=== PATIENT | female | born 1950 | race Caucasian/White ===

== ENCOUNTER 2020-04-03 14:48 | Outpatient (CLI) | payer MEDICARE, SELFPAY ==
--- NOTE | ~2020-04-03 | MM_ITS ---
EXAMINATION: MM screening [facility] BI w rose marie HISTORY: Screening mammogram TECHNIQUE: Craniocaudal and mediolateral oblique 3-D tomosynthesis images were obtained and synthetic 2-D images were generated. CAD analysis was submitted and interpreted. COMPARISON: Comparison to multiple prior studies sequentially, with oldest reviewed study dated 03/09. BREAST PARENCHYMAL COMPOSITION: There are scattered areas of fibroglandular density. FINDINGS: There is no evidence of suspicious mass, calcification, or architectural distortion to sugg est malignancy in either breast. There has been no suspicious interval change. IMPRESSION: 1. No mammographic evidence of malignancy. 2. Recommend routine screening mammography in one year. BI-RADS Category 1: Negative Reviewed, dictated and finalized at location A.
== END 2020-04-03 14:49 | disposition home or self-care (01) ==
PROVIDERS: PCP Family Medicine; Visit Provider Family Medicine
DX: Z12.31 Encounter for screening mammogram for malignant neoplasm of breast (principal)
CPT/HCPCS: 77063; 77067

== ENCOUNTER 2020-09-13 06:50 | Outpatient (NON) | payer MEDICARE, SELFPAY ==
[2020-09-13 23:48] LABS: SARS-CoV-2 RNA PCR Positive
== END 2020-09-13 06:51 ==
LOC: ANHCOVIDDT 07:06
PROVIDERS: PCP Family Medicine; Visit Provider Family Medicine
DX: U07.1 COVID-19 (principal)
CPT/HCPCS: 87635; C9803; U0003

== ENCOUNTER 2021-02-01 15:11 | Outpatient (CLI) | payer MEDICARE, SELFPAY ==
--- NOTE | ~2021-02-01 | DEXA_ITS ---
Bone Density Report Name: Pretty Nayak Age: 70 Sex: Female Ethnicity: White Date of : 1950 Indication: postmenopausal; Referring Provider: ALMA ARMIJO Study: Bone densitometry was performed. Exam Date: February 01, 2021 Accession number: [id number] Bone Density: Region BMD T-score Z-score Classification AP Spine (L1-L4) 0.850 -1.8 0.2 Osteopenia Femoral Neck (Left) 0.629 -2.0 -0.3 Osteopenia Total Hip (Left) 0.675 -2.2 -0.8 Osteopenia Total Hip Bilateral Avg 0.650 -2.4 -1.0 Osteopenia Femoral Neck (Right) 0.580 -2.4 -0.7 Osteopenia Total Hip (Right) 0.623 -2.6 -1.2 Osteoporosis World Health Organization criteria for BMD impression classify patients as: Normal (T-score at or above -1.0), Osteopenia (T-score between -1.0 and -2.5), or Osteoporosis (T-score at or below -2.5). 10-year Fracture Risk: FRAX not reported because: Some T-score for Spine Total or Hip Total or Femoral Neck at or below -2.5 Clinical Information Provided by Patient: Patient maximum height was 65.5 Menopause Age: 57 Onset of menses at age 16 Number of children 2 Impression: The patient has osteoporosis, based on the Right Total Hip T-score. Discussion: INCREASED RISK OF FRACTURE. BONE DENSITY IS UNDESIRABLY LOW AT ONE OR MORE SKELETAL SITES, CONSISTENT WITH POSTMENOPAUSAL OSTEOPOROSIS. This patient's lowest T-score meets the World Health Organization's (WHO) criteria for osteoporosis at one or more sites (T-score -2.5 or below). In untreated patients, the risk of osteoporotic fracture increases approximately two-fold for each 1.0 SD decrease in T-score. Low bone density is not the only risk factor for fracture; also consider factors such as patient's age, frailty or poor health, risk of falling, risk of injury, previous osteoporotic fracture, family history of osteoporosis, cigarette smoking, low body weight, etc. Not everyone with low bone mineral density has osteoporosis; osteomalacia and other metabolic bone disorders should also be considered. Patients who have osteoporosis should be evaluated for specific diseases and conditions (secondary causes) that may cause or contribute to bone loss. The [place] Association [employer] Clinical Endocrinologists (AACE) and National Osteoporosis Foundation (NOF) recommend pharmacologic intervention for all postmenopausal women whose T-score is in this range. The patient should follow a healthful lifestyle (good nutrition with adequate calcium and vitamin D, and appropriate weight-bearing exercise). Follow-Up: Consider a repeat BMD and Vertebral Fracture Assessment (VFA) exam in 2 years or sooner if medically necessary, to reassess this patient's status. Reported by: JEFF on 02/01/2021 3:33:00 PM. Reviewed, dictated and finalized at location
== END 2021-02-01 15:12 | disposition home or self-care (01) ==
LOC: ANHIMG 15:13
PROVIDERS: PCP Family Medicine; Visit Provider Family Medicine
DX: M81.0 Age-related osteoporosis without current pathological fracture (principal); Z12.31 Encounter for screening mammogram for malignant neoplasm of breast; Z78.0 Asymptomatic menopausal state; M85.88 Other specified disorders of bone density and structure, other site; M85.852 Other specified disorders of bone density and structure, left thigh; M85.851 Other specified disorders of bone density and structure, right thigh
CPT/HCPCS: 77080

== ENCOUNTER 2021-04-06 14:06 | Outpatient (CLI) | payer MEDICARE, SELFPAY ==
--- NOTE | ~2021-04-06 | MM_ITS ---
EXAMINATION: MM screening [facility] BI w rose marie HISTORY: Screening mammogram TECHNIQUE: Craniocaudal and mediolateral oblique 3-D tomosynthesis images were obtained and synthetic 2-D images were generated. CAD analysis was submitted and interpreted. COMPARISON: 04/03/2020 through 03/03/2015 bilateral digital screening mammogram examinations and 04/02/2019 diagnostic left mammogram BREAST PARENCHYMAL COMPOSITION: There are scattered areas of fibroglandular density. FINDINGS: Stable focal fibroglandular asymmetry in the medial left breast, not significantly changed since 03/03/2015. Occasional bilateral benign calcifications. There is no evidence of suspicious mass, calcification, or architectural distortion to suggest malignancy in either breast. There has been no suspicious interval change. IMPRESSION: 1. No mammographic evidence of malignancy. 2. Recommend routine screening mammography in one year. BI-RADS Category 2: Benign finding(s). Reviewed, dictated and finalized at location A.
== END 2021-04-06 14:07 | disposition home or self-care (01) ==
LOC: ANHIMG 14:12
PROVIDERS: PCP Family Medicine; Visit Provider Family Medicine
DX: Z12.31 Encounter for screening mammogram for malignant neoplasm of breast (principal)
CPT/HCPCS: 77063; 77067

== ENCOUNTER 2021-05-17 00:36 | Day surgery (SDC) | payer MEDICARE, SELFPAY ==
[2021-05-03 10:43] VITALS: BMI 22.9
[2021-05-17 07:16] VITALS: BP 119/80; PULSE 120; RESP 18; TEMP 36.3; O2SAT 97
[2021-05-17] MEDS: LACTATED RINGERS 1,000 ML 150 ML IV CONT (07:26)
--- NOTE | 2021-05-17 07:50 | PM.HPGS ---
History of Present Illness History of Present Illness Consent: Risks, benefits, and alternatives have been discussed and questions answered. Patient agrees to proceed with procedure. Chief complaint: hx of colon polyps Narrative: Pretty Nayak is a 70 year old female Here for colon cancer screening. She has a history of polyps. Review of Systems Review of Systems: All systems reviewed & are unremarkable except as noted in HPI and below PMFSH Past Medical History Medical History Cataract Colorectal polyps (~2013) COVID-19 Skin cancer (melanoma) (~2011) Suicide attempt 2009 Surgical History Surgical History History of cholecystectomy (~2008) History of tonsillectomy (~1959) Status post Mohs surgery (~2011) Family History Family History Mother Family history of thyroid disease Father Carcinoma of colon Family history of macular degeneration Other Family history of malignant melanoma Social History Social History Smoking status: Never smoker Alcohol intake: current Alcohol use details: very occasionally Living arrangements: with family Gender identity (if verbalized by the patient): Female Spiritual care concerns: No Meds Home Medications and Allergies Home Medications Medication Instructions Recorded Confirmed Type fluticasone propionate 50 1 spray INTRANASAL DAILY PRN 11/28/20 05/17/21 History mcg/actuation nasal spray,suspension lorazepam 1 mg tablet 1 mg PO DAILY PRN 11/28/20 05/17/21 History cholecalciferol (vitamin D3) 25 25 mcg PO DAILY 01/03/21 05/17/21 History mcg (1,000 unit) capsule amitriptyline 10 mg tablet 20 mg PO QHS tablet 02/14/21 05/03/21 History acyclovir 200 mg PO .5x a day PRN 05/17/21 05/17/21 History denosumab [Prolia] 60 mg SUBCUT [id number] 05/17/21 05/17/21 History Allergies Allergy/AdvReac Type Severity Reaction Status Date / Time erythromycin base Allergy Unknown unknown Verified 05/17/21 07:15 sulfamethoxazole AdvReac Severe NAUSEA Verified 05/17/21 07:15 trimethoprim AdvReac Severe NAUSEA Verified 05/17/21 07:15 Bisphosphonates AdvReac unable to Verified 05/17/21 07:15 tolerate raloxifene [From Evista] AdvReac not able Verified 05/17/21 07:15 to tolerate Vital Signs Vital Signs - 24 hr 05/17/21 07:16 Temperature 36.3 C L Pulse Rate 120 H Respiratory Rate 18 Blood Pressure 119/80 Pulse Oximetry 97 Exam Const: General: alert Orientation/consciousness: patient oriented x3 Resp: Auscultation: clear to auscultation bilaterally Cardio: Rhythm: regular rhythm GI: GI Palp: Yes Soft to palpation and No Tenderness to palpation present (GI) Neuro: General: patient oriented x3 Assessment and Plan Assessment and plan (1) Colon cancer screening: Code(s): Z12.11 - Encounter for screening for malignant neoplasm of colon Status: Acute Assessment and Plan: Colonoscopy with possible biopsy or polypectomy or cautery or injection of substances.
--- NOTE | 2021-05-17 08:01 | WPDANESEPPF ---
Anes - Initial Pre Proc Eval Procedure: Operation Date: 05/17/21 08:30 Proposed Procedures p Screening Colonoscopy - eKshav Anderson MD Date/Time: 05/17/21 08:01 Surgeon: Keshav Anderson MD Pre Op Diagnosis: hx of colon polyps Patient Data Age: 70 Gender: F Height: 1.57 m Weight: 55 kg Last Vital Signs Temp 36.3 C L 05/17/21 07:16 Pulse 120 H 05/17/21 07:16 Resp 18 05/17/21 07:16 BP 119/80 05/17/21 07:16 Pulse Ox 97 05/17/21 07:16 Allergies Allergy/AdvReac Type Severity Reaction Status Date / Time erythromycin base Allergy Unknown unknown Verified 05/17/21 07:15 sulfamethoxazole AdvReac Severe NAUSEA Verified 05/17/21 07:15 trimethoprim AdvReac Severe NAUSEA Verified 05/17/21 07:15 Bisphosphonates AdvReac unable to Verified 05/17/21 07:15 tolerate raloxifene [From Evista] AdvReac not able Verified 05/17/21 07:15 to tolerate Home Medications Medication Instructions Recorded Confirmed Type fluticasone propionate 50 1 spray INTRANASAL DAILY PRN 11/28/20 05/17/21 History mcg/actuation nasal spray,suspension lorazepam 1 mg tablet 1 mg PO DAILY PRN 11/28/20 05/17/21 History cholecalciferol (vitamin D3) 25 25 mcg PO DAILY 01/03/21 05/17/21 History mcg (1,000 unit) capsule amitriptyline 10 mg tablet 20 mg PO QHS tablet 02/14/21 05/03/21 History acyclovir 200 mg PO .5x a day PRN 05/17/21 05/17/21 History denosumab [Prolia] 60 mg SUBCUT [id number] 05/17/21 05/17/21 History Patient hx anesthesia problems: none Family hx anesthesia problems: none PMFSH Past Medical History Medical History Cataract Colorectal polyps (~2013) COVID-19 Skin cancer (melanoma) (~2011) Suicide attempt 2009 Surgical History Surgical History History of cholecystectomy (~2008) History of tonsillectomy (~1959) Status post Mohs surgery (~2011) Family History Family History Mother Family history of thyroid disease Father Carcinoma of colon Family history of macular degeneration Other Family history of malignant melanoma Social History Social History Smoking status: Never smoker Alcohol intake: current Alcohol use details: very occasionally Living arrangements: with family Gender identity (if verbalized by the patient): Female Spiritual care concerns: No Anes - Eval Final PreProcedure Day of Procedure 05/17/21 08:01 Patient weight: normal Heart: regular rate and rhythm Lungs: clear to auscultation and normal air movement Airway: Mallampati scale class II Neurological: alert and oriented Last oral intake: >/= 8 hours ASA classification: II Emergent: no Anesthetic plan: proceed Anesthesia type and monitoring: general GIVS and standard monitoring Informed Consent: The patient's anesthetic plan and its attendant risks and benefits were discussed with the patient/family/POA. Questions were solicited and answers provided to the satisfaction of the patient/family/POA.
[2021-05-17 08:56] VITALS: BP 90/59; PULSE 43; RESP 19; O2SAT 99
[2021-05-17 09:06] VITALS: BP 113/71; PULSE 98; RESP 20; O2SAT 98
[2021-05-17 09:16] VITALS: BP 117/75; PULSE 88; RESP 19; O2SAT 100
== END 2021-05-17 09:34 | disposition home or self-care (01) ==
PROVIDERS: PCP Family Medicine; Visit Provider Internal Medicine Gastroenterology
PROC: 0DJD8ZZ Inspection of Lower Intestinal Tract, Via Natural or Artificial Opening Endoscopic (ICD-10-PCS; CPT 45378; principal; 2021-05-17 08:30)
DX: Z12.11 Encounter for screening for malignant neoplasm of colon (principal); Z86.010 Personal history of colon polyps; Z86.16 Personal history of COVID-19
CPT/HCPCS: G0105; J2001; J2704; J7120

== ENCOUNTER 2021-10-16 14:04 | Emergency (ER) | payer MEDICARE, SELFPAY ==
--- NOTE | ~2021-10-16 | XR_ITS ---
XR humerus RT 10/16/2021 14:38 Indication: Right arm pain Procedure: 2 views right humerus Comparison: No prior studies for comparison. Findings: There is ossification adjacent to the humeral head laterally, possibly calcific tendinopath y. No acute fracture or traumatic malalignment. Normal mineralization. Surrounding soft tissues are u nremarkable. No foreign bodies. Impression: 1: No acute bone or joint abnormality. 2: Probable calcific tendinopathy of the shoulder. Reviewed, dictated and finalized at location A. [employer] Impression: 1: No acute bone or joint abnormality. 2: Probable calcific tendinopathy of the shoulder.
[2021-10-16 14:13] VITALS: BP 136/80; PULSE 119; RESP 16; TEMP 37.3; O2SAT 100
[2021-10-16 14:17] VITALS: BP 136/80; PULSE 119; RESP 16; TEMP 37.3; O2SAT 100
--- NOTE | 2021-10-16 15:03 | ED.GENADULT ---
HPI - General Adult General Chief complaint: Extremity Injury, Upper Stated complaint: rt shoulder pain Source: patient Mode of arrival: ambulatory Limitations: no limitations History of Present Illness HPI narrative: Patient is a 70-year-old female who presents to the [facility] via POV for evaluation of right shoulder pain that occurred 5 days ago. Additionally, she reports picking up a heavy [employer] container eliciting pain. Ibuprofen provides minimal relief although she states as she has aged she has a difficult time tolerating this medication. She reports stomach upset with NSAIDs. Movement worsens pain. Remaining still resolved pain. She called her PCP although they were unable to schedule appointment since they are out of the office due to the holidays. Related Data Home Medications Medication Instructions Recorded Confirmed fluticasone propionate 50 1 spray INTRANASAL DAILY PRN 11/28/20 10/16/21 mcg/actuation nasal spray,suspension lorazepam 1 mg tablet 0.5 mg PO DAILY PRN 11/28/20 10/16/21 cholecalciferol (vitamin D3) 25 25 mcg PO DAILY 01/03/21 10/16/21 mcg (1,000 unit) capsule amitriptyline 10 mg tablet 20 mg PO QHS tablet 02/14/21 10/16/21 Prolia 60 mg SUBCUT [id number] 05/17/21 10/16/21 Allergies Allergy/AdvReac Type Severity Reaction Status Date / Time erythromycin base Allergy Unknown unknown Verified 10/16/21 14:13 sulfamethoxazole AdvReac Severe NAUSEA Verified 10/16/21 14:13 trimethoprim AdvReac Severe NAUSEA Verified 10/16/21 14:13 Bisphosphonates AdvReac unable to Verified 10/16/21 14:13 tolerate raloxifene [From Evista] AdvReac not able Verified 10/16/21 14:13 to tolerate Review of Systems Review of Systems: Pertinent negatives: fever, chills, sweats, change in appetite, poor p.o. intake, malaise, skin color changes, rash, warmth, swelling, numbness, tingling, loss of sensation, deformity, decreased range of motion, weakness, difficulty with ambulation/coordination, nausea, vomiting, lymphadenopathy, shortness of breath, chest pain, heart palpitations, and heart murmur. [facility] Past Medical History Medical History Cataract Colorectal polyps (~2013) COVID-19 .2020 Skin cancer (melanoma) (~2011) Suicide attempt 2009 Surgical History Surgical History History of cholecystectomy (~2008) History of tonsillectomy (~1959) Status post Mohs surgery (~2011) Family History Family History Mother Family history of thyroid disease Father Carcinoma of colon Family history of macular degeneration Other Family history of malignant melanoma Social History Social History Alcohol intake: current Alcohol use details: very occasionally Gender identity (if verbalized by the patient): Female Spiritual care concerns: No Comments I have reviewed and agree with the patient's past medical, surgical, social, and family hx as documented by the RN. There is no relevant family history pertinent to the presenting complaint. Exam Narrative: GENERAL: Well-appearing, well-nourished, and in no acute distress. HEAD: Normocephalic, atraumatic. NECK: Supple. No Lymphadenopathy or nuchal rigidity appreciated. CHEST: Bilateral lung tavarez are clear to auscultation. No respiratory distress. No evidence of cough or pleuritic cp upon examination. HEART: Tachycardia with a rate of 116. Regular rhythm. No murmur, gallop, or rub heard. EXTREMITIES: Decreased range of motion of right shoulder secondary to pain. Moderate pain is elicited to anterior aspect of right shoulder with passive and active abduction and internal rotation. No evidence of injury, swelling, cyanosis, hematoma, laceration, abrasion, deformity, rash, or puncture. No evidence of
== END 2021-10-16 15:30 | disposition home or self-care (01) ==
PROVIDERS: Emergency Provider Nurse Practitioner Family; PCP Family Medicine
DX: M25.511 Pain in right shoulder (principal); H26.9 Unspecified cataract; Z86.16 Personal history of COVID-19; Z85.820 Personal history of malignant melanoma of skin
CPT/HCPCS: 73060; 99213; G0463

== ENCOUNTER 2022-04-30 09:46 | Outpatient (CLI) | payer MEDICARE, SELFPAY ==
--- NOTE | ~2022-04-30 | MM_ITS ---
EXAMINATION: MM screening [facility] BI w rose marie HISTORY: Screening TECHNIQUE: Craniocaudal and mediolateral oblique 3-D tomosynthesis images were obtained and synthetic 2-D images were generated. CAD analysis was submitted and interpreted. COMPARISON: Comparison to multiple prior studies sequentially, with oldest reviewed study dated 03/11. BREAST PARENCHYMAL COMPOSITION: There are scattered areas of fibroglandular density. FINDINGS: There is a developing asymmetry in the upper inner quadrant of the left breast. There is a developing cluster of nonspecific calcifications in the upper outer quadrant. The right breast is sta ble without evidence for malignancy. IMPRESSION: 1. Developing left breast asymmetry and calcifications. 2. Additional mammographic views and possible breast ultrasound are recommended. BI-RADS Category 0: Incomplete: Needs additional imaging evaluation. Reviewed, dictated and finalized at location A. IMPRESSION: 1. Developing left breast asymmetry and calcifications. 2. Additional mammographic views and possible breast ultrasound are recommended . BI-RADS Category 0: Incomplete: Needs additional imaging evaluation.
== END 2022-04-30 09:47 | disposition home or self-care (01) ==
LOC: ANHIMG 09:47
PROVIDERS: PCP Family Medicine; Visit Provider Family Medicine
DX: Z12.31 Encounter for screening mammogram for malignant neoplasm of breast (principal); R92.8 Other abnormal and inconclusive findings on diagnostic imaging of breast
CPT/HCPCS: 77063; 77067

== ENCOUNTER 2022-05-09 13:15 | Outpatient (CLI) | payer MEDICARE, SELFPAY ==
--- NOTE | ~2022-05-09 | MM_ITS ---
EXAMINATION: MM diagnostic [facility] LT w rose marie HISTORY: Left breast asymmetry and calcifications on screening mammogram TECHNIQUE: Additional views of the left breast were performed and synthetic 2-D images were generated . CAD analysis was submitted and interpreted. COMPARISON: 04/30/2022, 04/06/2021, 04/03/2020, 04/02/2019, 03/16/2019 FINDINGS: With spot compression, the asymmetry in the middle third of inner breast has a stable appea yanira when compared to multiple prior mammograms. There are calcifications in the posterior third of the upper outer quadrant of the breast at the 2:00 location 7 cm from the nipple which may be coarse heterogeneous in morphology but are too few in number for definitive characterization. IMPRESSION: 1. Probably benign left breast calcifications. 2. Recommend 6 month follow-up left diagnostic mammogram. BI-RADS category 3, probably benign findings. Reviewed, dictated and finalized at location A.
== END 2022-05-09 13:16 | disposition home or self-care (01) ==
PROVIDERS: PCP Family Medicine; Visit Provider Family Medicine
DX: R92.1 Mammographic calcification found on diagnostic imaging of breast (principal)
CPT/HCPCS: 77061; 77065; G0279

== ENCOUNTER 2022-11-11 11:07 | Outpatient (CLI) | payer MEDICARE, SELFPAY ==
--- NOTE | ~2022-11-11 | MM_ITS ---
EXAMINATION: MM diagnostic [facility] LT w rose marie HISTORY: Six-month follow-up for probably benign left breast calcifications TECHNIQUE: Craniocaudal, mediolateral, and mediolateral oblique 3-D tomosynthesis images of the left breast were performed and synthetic 2-D images were generated. Magnification views are also obtained. CAD analysis was submitted and interpreted. COMPARISON: 05/09/2022, 04/30/2022, 04/06/2021, 04/03/2020 BREAST PARENCHYMAL COMPOSITION: There are scattered areas of fibroglandular density. FINDINGS: There are stable calcifications in the posterior third of the upper outer quadrant of the b reast at the 2:00 location 7 cm from the nipple. These appear to be dystrophic versus coarse heteroge neous in morphology. A stable asymmetry is present in the inner breast on the craniocaudal view. IMPRESSION: 1. Stable, probably benign left breast calcifications. 2. Recommend 6 month follow-up diagnostic mammogram. BI-RADS category 3, probably benign findings. Reviewed, dictated and finalized at location A. 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
== END 2022-11-11 11:08 | disposition home or self-care (01) ==
LOC: ANHIMG 11:08
PROVIDERS: PCP Family Medicine; Visit Provider Physician Assistant
DX: R92.1 Mammographic calcification found on diagnostic imaging of breast (principal)
CPT/HCPCS: 77061; 77065; G0279

== ENCOUNTER 2023-01-15 14:40 | Outpatient (CLI) | payer MEDICARE, SELFPAY ==
--- NOTE | ~2023-01-15 | DEXA_ITS ---
Bone Density Report Name: NOAH DECKER Age: 72 Sex: Female Ethnicity: White Date of : 1950 Indication: postmenopausal osteoporosis; monitoring treatment; cancer; Referring Provider: ALMA ARMIJO Study: Bone densitometry was performed. Exam Date: January 15, 2023 Accession number: [id number] Bone Density: Region BMD T-score Z-score Classification AP Spine(L1-L4) 0.906 -1.3 0.8 Osteopenia Femoral Neck (Left) 0.623 -2.0 -0.2 Osteopenia Total Hip (Left) 0.672 -2.2 -0.7 Osteopenia Femoral Neck (Right) 0.591 -2.3 -0.5 Osteopenia Total Hip (Right) 0.675 -2.2 -0.7 Osteopenia Total Hip Mean 0.674 -2.2 -0.7 Osteopenia World Health Organization criteria for BMD impression classify patients as: Normal (T-score at or above -1.0), Osteopenia (T-score between -1.0 and -2.5), or Osteoporosis (T-score at or below -2.5). 10-year Fracture Risk: FRAX not reported because: Treated for osteoporosis Previous Exams: Region Exam Age BMD T-score BMD Change BMD Change Date g/cm2 vs Baseline vs Previous AP Spine (L1-L4) 01/15/2023 72 0.906 -1.3 0.056 (6.6%)* 0.056 (6.6%)* 02/01/2021 70 0.850 -1.8 Total Hip(Left) 01/15/2023 72 0.672 -2.2 -0.002 (-0.4%) -0.002 (-0.4%) 02/01/2021 70 0.675 -2.2 Total Hip(Right) 01/15/2023 72 0.675 -2.2 0.052 (8.4%)* 0.052 (8.4%)* 02/01/2021 70 0.623 -2.6 *Denotes significance at 95% confidence level, LSC for AP Spine = 0.022 g/cm2, LSC for Total Hip = 0.027 g/cm2 Clinical Information Provided by Patient: Is being treated for osteoporosis Has used the following medications: Prolia (i.e. denosumab), Vitamin D, Calcium Has the following medical conditions: Cancer Patient maximum height was 65.5 Menopause Age: 57 Onset of menses at age 15 Number of children 2 Impression: The patient has low bone mass, based on the Right Femoral Neck T-score. No significant bone loss was observed. Discussion: PATIENT UNDER TREATMENT WITH NO SIGNIFICANT BMD LOSS SINCE LAST EXAM. In an untreated patient, BMD typically declines with age. A lack of decline or gain is usually a sign that treatment is efficacious and fracture risk is reduced. It is important to ask patients whether they are taking their medications and to encourage continued and appropriate compliance with their osteoporosis therapies to reduce fracture risk. It is also important to review their risk factors and encourage appropriate calcium an
== END 2023-01-15 14:41 | disposition home or self-care (01) ==
LOC: ANHIMG 14:41
PROVIDERS: PCP Family Medicine; Visit Provider Family Medicine
DX: M81.0 Age-related osteoporosis without current pathological fracture (principal); M85.88 Other specified disorders of bone density and structure, other site; M85.852 Other specified disorders of bone density and structure, left thigh; M85.851 Other specified disorders of bone density and structure, right thigh
CPT/HCPCS: 77080

== ENCOUNTER 2023-05-10 12:56 | Emergency (ER) | payer MEDICARE, SELFPAY ==
[2023-05-10 13:13] VITALS: BP 121/74; PULSE 91; RESP 16; TEMP 36.3; O2SAT 99
--- NOTE | 2023-05-10 14:09 | ED.FEMALEGU ---
HPI - Female Genitourinary General Chief complaint: Urogenital-Female Stated complaint: urinary issues Time Seen by Provider: 05/10/23 14:04 Source: patient and RN notes reviewed Mode of arrival: ambulatory Limitations: no limitations History of Present Illness HPI Narrative: Patient presents today complaining of urinary frequency, voiding small amounts, and incomplete bladder emptying x ?several days?. Denies abdominal pain, flank pain, fever, nausea vomiting, sweats or chills. She has increased her water intake without relief. No recent antibiotic use. Related Data Home Medications Medication Instructions Recorded Confirmed fluticasone propionate 50 1 spray intranasal DAILY PRN 11/28/20 05/10/23 mcg/actuation nasal Allergy Symptoms spray,suspension (Flonase Allergy Relief) cholecalciferol (vitamin D3) 25 25 mcg PO DAILY 01/03/21 05/10/23 mcg (1,000 unit) capsule denosumab 60 mg/mL subcutaneous 60 mg subcut [id number] 05/17/21 05/10/23 syringe (Prolia) amitriptyline 10 mg tablet 10 mg PO QHS 07/05/22 05/10/23 triamcinolone acetonide 0.1 % 0.1 g topical PRN PRN rash 01/02/23 05/10/23 topical cream Allergies Allergy/AdvReac Type Severity Reaction Status Date / Time erythromycin base Allergy Unknown unknown Verified 05/10/23 13:19 sulfamethoxazole AdvReac Severe NAUSEA Verified 05/10/23 13:19 trimethoprim AdvReac Severe NAUSEA Verified 05/10/23 13:19 Bisphosphonates AdvReac unable to Verified 05/10/23 13:19 tolerate raloxifene [From Evista] AdvReac not able Verified 05/10/23 13:19 to tolerate Review of Systems Review of Systems: CONSTITUTIONAL: Denies body aches, fever, chills, or sweats. EYES: Denies visual changes, redness, or discharge. ENT: Denies rhinorrhea, congestion, sore throat, or otalgia. CARDIOVASCULAR: Denies chest pain, palpitations, or edema. RESPIRATORY: Denies cough or dyspnea. GASTROINTESTINAL: Denies abdominal pain, nausea, vomiting, or diarrhea. GENITOURINARY: Denies dysuria or hematuria. + frequency, voiding small amounts SKIN: Denies rash, itching, or wounds. MUSCULOSKELETAL: Denies back pain, joint pain, or myalgia. NEUROLOGIC: Denies headache, numbness, tingling, or weakness. PSYCH: Denies depression or anxiety. [facility] Past Medical History Medical History Cataract Colorectal polyps (~2013) COVID-19 .2020 Skin cancer (melanoma) (~2011) Suicide attempt 2009 Surgical History Surgical History History of cholecystectomy (~2008) History of tonsillectomy (~1959) Status post Mohs surgery (~2011) Family History Family History Mother Family history of thyroid disease Father Carcinoma of colon Family history of macular degeneration Other Family history of malignant melanoma Social History Social History Smoking status: Never smoker Second hand tobacco smoke exposure: No Alcohol intake: current Alcohol use details: very occasionally Substance use: never Substance use type: does not use Lack of Transportation: No Lack of Food: Never True Current Housing: I Have Housing Concerned About Future Housing: No Difficulty Paying Gas/Electric Bills: No Difficulty Paying for Meds: No Currently Unemployed: No Education: Bachelor's Degree Difficulty w/ Childcare or Family Care: No Living arrangements: with family Gender identity (if verbalized by the patient): Female Spiritual care concerns: No Comments At time of signature, I have reviewed and agree with nursing past medical, surgical, social and family history unless otherwise noted. Please see nursing chart for further information. There is no relevant family history pertinent to the presenting complaint Exam Narrative:
== END 2023-05-10 14:19 | disposition home or self-care (01) ==
PROVIDERS: Emergency Provider Nurse Practitioner; PCP Family Medicine
DX: N30.01 Acute cystitis with hematuria (principal); Z86.16 Personal history of COVID-19; Z85.820 Personal history of malignant melanoma of skin
CPT/HCPCS: 81003; 87086; 99213; G0463

== ENCOUNTER 2023-05-12 11:33 | Outpatient (CLI) | payer MEDICARE, SELFPAY ==
--- NOTE | ~2023-05-12 | MM_ITS ---
EXAMINATION: MM diagnostic janis BI w rose marie HISTORY: Follow-up left breast calcifications TECHNIQUE: Additional 3-D tomosynthesis images of the breasts were performed and synthetic 2-D images were generated. CAD analysis was submitted and interpreted. COMPARISON: Comparison to multiple prior studies sequentially, with oldest reviewed study dated 05/2020. BREAST PARENCHYMAL COMPOSITION: Breast composed of scattered areas of fibroglandular density FINDINGS: Bilateral breast are stable. Calcifications in the upper outer quadrant of the left breast are not significantly changed dating back to 03/28/2020. No new masses, clustered calcifications or a rchitectural distortion in either breast to suggest malignancy. IMPRESSION: 1. Stable benign-appearing left breast calcifications. No evidence for malignancy. 2. Routine yearly screening mammogram and regular clinical breast examination are recommended. BI-RADS Category 2: Benign finding(s). Reviewed, dictated and finalized at location A. IMPRESSION: 1. Stable benign-appearing left breast calcifications. No evidence for malignan cy. 2. Routine yearly screening mammogram and regular clinical breast examination a re recommended. BI-RADS Category 2: Benign finding(s).
== END 2023-05-12 11:34 | disposition home or self-care (01) ==
LOC: ANHIMG 11:34
PROVIDERS: PCP Family Medicine; Visit Provider Family Medicine
DX: R92.8 Other abnormal and inconclusive findings on diagnostic imaging of breast (principal)
CPT/HCPCS: 77062; 77066; G0279

== ENCOUNTER 2023-12-13 11:32 | Emergency (ER) | payer MEDICARE, SELFPAY ==
--- NOTE | ~2023-12-13 | XR_ITS ---
EXAMINATION: XR foot LT min 3V DATE: 12/13/2023 11:58 INDICATION: Lateral left foot pain and tenderness post fall TECHNIQUE: Dorsoplantar, two oblique and lateral views of the 02/15/2015 foot were obtained. COMPARISON: None. FINDINGS: Hallux valgus and bunion with hypertrophic and mild cystic changes at the medial head of the first me tatarsal. Old fracture of the second metatarsal diaphysis which has healed with 10 degree dorsolatera l angulation. Bone alignment is otherwise normal. No acute fracture. Moderate osteoarthritis at the f irst metatarsophalangeal joint. Minimal to mild osteoarthritis at a few of the tarsal metatarsal and interphalangeal joints. Small Achilles calcaneal spur. Soft tissues are unremarkable. No ankle joint effusion. IMPRESSION: 1. No acute osseous abnormality. 2. Hallux valgus with bunion and moderate osteoarthritis at the first metatarsophalangeal joint. Reviewed, dictated and finalized at location A. [employer] IMPRESSION: 1. No acute osseous abnormality. 2. Hallux valgus with bunion and moderate osteoarthritis at the first metatarso phalangeal joint.
[2023-12-13 11:45] VITALS: BP 108/70; PULSE 101; RESP 16; TEMP 36.4; O2SAT 100
--- NOTE | 2023-12-13 11:48 | ED.LOWEXIN ---
HPI - Extremity Injury (Lower) General Chief Complaint: Extremity Injury, Lower Stated Complaint: left foot injury Time Seen by Provider: 12/13/23 12:04 Source: patient and RN notes reviewed Mode of arrival: ambulatory Limitations: no limitations History of Present Illness HPI Narrative: 72-year-old female presents with concern for pain to the left foot. Reports she rolled the foot last night after still asleep. Reports lateral pain. She reports she used ice and Tylenol. She denies decreased strength, sensation, range of motion in the foot, ankle, digits MD complaint: foot injury Related Data Home Medications Medication Instructions Recorded Confirmed fluticasone propionate 50 1 spray intranasal DAILY PRN 11/28/20 12/13/23 mcg/actuation nasal Allergy Symptoms spray,suspension (Flonase Allergy Relief) cholecalciferol (vitamin D3) 25 25 mcg PO DAILY 01/03/21 12/13/23 mcg (1,000 unit) capsule denosumab 60 mg/mL subcutaneous 60 mg subcut [id number] 05/17/21 12/13/23 syringe (Prolia) amitriptyline 10 mg tablet 10 mg PO QHS 07/05/22 12/13/23 Allergies Allergy/AdvReac Type Severity Reaction Status Date / Time erythromycin base Allergy Unknown unknown Verified 12/13/23 11:39 sulfamethoxazole AdvReac Severe NAUSEA Verified 12/13/23 11:39 trimethoprim AdvReac Severe NAUSEA Verified 12/13/23 11:39 Bisphosphonates AdvReac unable to Verified 12/13/23 11:39 tolerate raloxifene [From Evista] AdvReac not able Verified 12/13/23 11:39 to tolerate Review of Systems Review of Systems: CONSTITUTIONAL: Denies malaise, chills, sweats, or fever. SKIN: Denies rash or itching, open skin, laceration, abrasion, redness, warmth, swelling. MUSCULOSKELETAL: Reports left foot pain NEUROLOGIC: Denies numbness, weakness All systems reviewed & are unremarkable except as noted in HPI and below PMFSH Past Medical History Medical History Cataract Colorectal polyps (~2013) COVID-19 Skin cancer (melanoma) (~2011) Suicide attempt 2009 Surgical History Surgical History History of cholecystectomy (~2008) History of tonsillectomy (~1959) Status post Mohs surgery (~2011) Family History Family History Mother Family history of thyroid disease Father Carcinoma of colon Family history of macular degeneration Other Family history of malignant melanoma Social History Social History Smoking status: Never smoker Second hand tobacco smoke exposure: No Alcohol intake: current Alcohol use details: very occasionally Substance use: never Substance use type: does not use Lack of Transportation: No Lack of Food: Never True Current Housing: I Have Housing Concerned About Future Housing: No Difficulty Paying Gas/Electric Bills: No Difficulty Paying for Meds: No Currently Unemployed: No Education: Bachelor's Degree Difficulty w/ Childcare or Family Care: No Living arrangements: with family Gender identity (if verbalized by the patient): Female Spiritual care concerns: No Comments At time of signature, agree with nursing past medical, surgical, social and family history. There is no relevant family history pertinent to the presenting complaint Exam Narrative: GENERAL: Well-appearing, well-nourished, and in no acute distress. HEAD: Normocephalic, atraumatic. EYES: PERRLA, conjunctivae clear NECK: Supple. CHEST: Speaks in full sentences. No respiratory distress. HEART: Regular rate and rhythm. Normal and equal peripheral pulses. EXTREMITIES: Left ankle, foot, digits have grossly normal strength and sensation, normal range of motion. No edema or ecchymosis. Normal sensation with sensitivity to light touch and pain. Lateral foot tenderness. No open w
== END 2023-12-13 12:15 | disposition home or self-care (01) ==
PROVIDERS: Emergency Provider Nurse Practitioner; PCP Family Medicine
DX: S93.602A Unspecified sprain of left foot, initial encounter (principal); X50.9XXA Other and unspecified overexertion or strenuous movements or postures, initial encounter; Z85.820 Personal history of malignant melanoma of skin; Z86.16 Personal history of COVID-19
CPT/HCPCS: 73630; 99213; G0463

== ENCOUNTER 2024-05-10 14:07 | Outpatient (CLI) | payer MEDICARE, SELFPAY ==
--- NOTE | ~2024-05-10 | MM_ITS ---
EXAMINATION: MM screening janis BI w rose marie HISTORY: Screening TECHNIQUE: Craniocaudal and mediolateral oblique 3-D tomosynthesis images were obtained and synthetic 2-D images were generated. CAD analysis was submitted and interpreted. COMPARISON: Comparison to multiple prior studies sequentially, with oldest reviewed study dated 05/2020. BREAST PARENCHYMAL COMPOSITION: Not dense: There are scattered areas of fibroglandular density. FINDINGS: Left breast asymmetry in the medial aspect of the left breast is unchanged. There is no brendan dence of suspicious mass, calcification, or architectural distortion to suggest malignancy in either breast. There has been no suspicious interval change. IMPRESSION: 1. No mammographic evidence of malignancy. 2. Recommend routine screening mammography in one year. BI-RADS Category 2: Benign finding(s). Reviewed, dictated and finalized at location B.
== END 2024-05-10 14:08 | disposition home or self-care (01) ==
PROVIDERS: PCP Family Medicine; Visit Provider Family Medicine
DX: Z12.31 Encounter for screening mammogram for malignant neoplasm of breast (principal)
CPT/HCPCS: 77063; 77067

== ENCOUNTER 2024-07-02 13:58 | Outpatient (CLI) | payer MEDICARE, SELFPAY ==
--- NOTE | ~2024-07-02 | XR_ITS ---
[id number] 07/02/2024 14:25 INDICATION: Left knee pain PROCEDURE: 2 views left knee COMPARISON: No prior studies for comparison. FINDINGS: Fracture, dislocation or subluxation is not identified. No joint effusion. The soft tissues appear within normal limits. No foreign bodies are identified. IMPRESSION: 1: NO ACUTE BONE OR JOINT ABNORMALITY IDENTIFIED. Reviewed, dictated and finalized at location B.
--- NOTE | ~2024-07-02 | XR_ITS ---
EXAMINATION: XR femur LT min 2V DATE: 07/02/2024 14:25 INDICATION: Left leg pain. TECHNIQUE: 2 views of left femur on 4 radiographs were obtained. COMPARISON: None. FINDINGS: Bone alignment is normal. No fracture. Left hip joint space is normal. There is mild left k nee osteoarthritis. No knee joint effusion. IMPRESSION: 1. Mild left knee osteoarthritis. Reviewed, dictated and finalized at location A.
--- NOTE | ~2024-07-02 | XR_ITS ---
EXAMINATION: XR tibia fibula LT 2V DATE: 07/02/2024 14:25 INDICATION: Left lower leg pain. TECHNIQUE: 2 views of left tibia and fibula on 3 radiographs were obtained. COMPARISON: None. FINDINGS: Alignment is normal. No fracture. There is mild left knee osteoarthritis. IMPRESSION: 1. Mild left knee osteoarthritis. Reviewed, dictated and finalized at location A.
== END 2024-07-02 13:59 | disposition home or self-care (01) ==
PROVIDERS: PCP Family Medicine; Visit Provider Student in an Organized Health Care Education/Training Program
DX: M19.072 Primary osteoarthritis, left ankle and foot (principal); M17.12 Unilateral primary osteoarthritis, left knee
CPT/HCPCS: 73552; 73560; 73590

== ENCOUNTER 2025-02-17 11:06 | Outpatient (CLI) | payer MEDICARE, SELFPAY ==
--- NOTE | ~2025-02-17 | DEXA_ITS ---
Bone Density Report Name: NOAH DECKER Age: 74 Sex: Female Ethnicity: White Date of : 1950 Indication: osteopenia; monitoring treatment; cancer; Referring Provider: MOSES SCOTT Study: Bone densitometry was performed. Exam Date: February 17, 2025 Accession number: [id number] Bone Density: Region BMD T-score Z-score Classification AP Spine(L1-L4) 0.946 -0.9 1.3 Normal Femoral Neck (Left) 0.655 -1.8 0.2 Osteopenia Total Hip (Left) 0.767 -1.4 0.2 Osteopenia Femoral Neck (Right) 0.583 -2.4 -0.5 Osteopenia Total Hip (Right) 0.686 -2.1 -0.5 Osteopenia Total Hip Mean 0.727 -1.8 -0.2 Osteopenia World Health Organization criteria for BMD impression classify patients as: Normal (T-score at or above -1.0), Osteopenia (T-score between -1.0 and -2.5), or Osteoporosis (T-score at or below -2.5). 10-year Fracture Risk: FRAX not reported because: Treated for osteoporosis Previous Exams: Region Exam Age BMD T-score BMD Change BMD Change Date g/cm2 vs Baseline vs Previous AP Spine (L1-L4) 02/17/2025 74 0.946 -0.9 0.096 (11.3%)* 0.040 (4.5%)* 01/15/2023 72 0.906 -1.3 0.056 (6.6%)* 0.056 (6.6%)* 02/01/2021 70 0.850 -1.8 Total Hip(Left) 02/17/2025 74 0.767 -1.4 0.092 (13.6%)* 0.094 (14.0%)* 01/15/2023 72 0.672 -2.2 -0.002 (-0.4%) -0.002 (-0.4%) 02/01/2021 70 0.675 -2.2 Total Hip(Right) 02/17/2025 74 0.686 -2.1 0.064 (10.2%)* 0.011 (1.7%) 01/15/2023 72 0.675 -2.2 0.052 (8.4%)* 0.052 (8.4%)* 02/01/2021 70 0.623 -2.6 *Denotes significance at 95% confidence level, LSC for AP Spine = 0.022 g/cm2, LSC for Total Hip = 0.027 g/cm2 Clinical Information Provided by Patient: Is being treated for osteoporosis Has used the following medications: Actonel (i.e. risedronate), Evista (i.e. raloxifene), Prolia (i.e. denosumab), Vitamin D, Calcium Has the following medical conditions: Cancer Patient maximum height was 65.5 Menopause Age: 57 No regular weight bearing exercise Onset of menses at age 15 Number of children 2 Impression: The patient has low bone mass, based on the Right Femoral Neck T-score. No significant bone loss was observed. Discussion: PATIENT UNDER TREATMENT WITH NO SIGNIFICANT BMD LOSS SINCE LAST EXAM. In an untreated patient, BMD typically declines with age. A lack of decline or gain is usually a sign that treatment is efficacious and fracture risk is reduced. It is important to ask patients whether they are taking their medications and to encourage continued and appropriate compliance with their osteoporosis therapies to reduce fracture risk. It is also important to review their risk factors and encourage appropriate calcium and vitamin D intakes, exercise, fall prevention and other lifestyle measures. Follow-Up: Consider a repeat BMD and Vertebral Fracture Assessment (VFA) exam in 2 years or sooner if medically necessary, to reassess this patient's status. Reported by: GENARO on 02/17/2025 11:47:00 AM. Reviewed, dictated and finalized at location AJuju CERRATO
--- OUTSIDE RECORDS SUMMARY | 2025-02-17 12:40 | XMS_ITS | Continuity of Care Document ---
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 , [address], [place], [address], [place]. tel:[phone] Family History Family Member Type Diagnosis Age At Onset No Information Payers Payer name Insurance type Covered constitution party ID Authoriza tion(s) No Information Social History [...]
== END 2025-02-17 11:07 | disposition home or self-care (01) ==
PROVIDERS: PCP Family Medicine; Visit Provider Student in an Organized Health Care Education/Training Program
DX: M81.0 Age-related osteoporosis without current pathological fracture (principal); M85.852 Other specified disorders of bone density and structure, left thigh; M85.851 Other specified disorders of bone density and structure, right thigh
CPT/HCPCS: 77080

== ENCOUNTER 2025-05-11 13:48 | Outpatient (CLI) | payer MEDICARE, SELFPAY ==
--- NOTE | ~2025-05-11 | MM_ITS ---
EXAMINATION: MM screening janis BI w rose marie HISTORY: Screening TECHNIQUE: Craniocaudal and mediolateral oblique 3-D tomosynthesis images were obtained and synthetic 2-D images were generated. CAD analysis was submitted and interpreted. COMPARISON: Comparison to multiple prior studies sequentially, with oldest reviewed study dated 04/06. BREAST PARENCHYMAL COMPOSITION: Not dense: There are scattered areas of fibroglandular density. FINDINGS: There is no evidence of suspicious mass, calcification, or architectural distortion to sugg est malignancy in either breast. There has been no suspicious interval change. IMPRESSION: 1. No mammographic evidence of malignancy. 2. Recommend routine screening mammography in one year. BI-RADS Category 1: Negative Reviewed, dictated and finalized at location B.
== END 2025-05-11 13:49 | disposition home or self-care (01) ==
LOC: ANHIMG 13:51
PROVIDERS: PCP Family Medicine; Visit Provider Family Medicine
DX: Z12.31 Encounter for screening mammogram for malignant neoplasm of breast (principal)
CPT/HCPCS: 77063; 77067

== ENCOUNTER 2025-07-05 13:59 | Outpatient (CLI) | payer MEDICARE, SELFPAY ==
--- OUTSIDE RECORDS SUMMARY | 2004-08-08 09:15 | XMS_ITS | Continuity of Care Document ---
Author Organization [facility] Address [address] [place] [address] [address] [place] [address] Phone Care Team Providers Care Division Sales Manager Name Role Phone Santosh Hartman Unavailable Unavailable Advance Directives Directive Yes / No Effective Date File Name No Information Encounters Encounter Description Practice Location Reason(s) For Visit Diagnoses Date Provider Providers Copied on Encounter [facility], [id number] [place] [address] [address], [place], [place], [id number], [place] tel:[phone] [facility] No Information [address] , [address], [place], [address], [place]. tel:[phone] Family History Family Member Type Diagnosis Age At Onset No Information Payers Payer name Insurance type Covered libertarian ID Authoriza tion(s) No Information Social History Type Description Quantity Date Captured Comments Sex Female Smoking Status No Information Chief Complaint And Reason For Visit No Information Reason For Referral Reason For Referral No Information History Of Present Illness Encounter Date Complaint History Of Prese nt Illness No Information Functional Status Date Functional Assessmen t No Information Instructions Date Instruction Additional Infor mation No Information Assessments Type Assessment Date No Information Patient Care Teams Name Effective Dates (start - stop) Status Members No Information
[2025-07-05 18:45] LABS: Iron 76 ug/dL (37-170)
[2025-07-05 18:54] LABS: Percent Iron Saturation 23 % (20-50)
[2025-07-05 20:08] LABS: Vitamin B12 420.0 pg/mL (239-931)
== END 2025-07-05 14:00 | disposition home or self-care (01) ==
LOC: ANHGOSHLAB 14:00
PROVIDERS: PCP Family Medicine; Visit Provider Student in an Organized Health Care Education/Training Program
DX: E78.2 Mixed hyperlipidemia (principal); M81.0 Age-related osteoporosis without current pathological fracture; R53.83 Other fatigue
CPT/HCPCS: 36415; 82607; 83540; 83550